=== PATIENT | male | born 1955 | race African-American/Black ===

== ENCOUNTER 2019-01-21 09:00 | Emergency (ER) | payer MEDICARE, MEDICAID ==
[~2019-01-21] VITALS: Ht 172.7 cm; Wt 70.0 kg
[~2019-01-21 09:00] MED LIST: ASA PO; CALC-440 PO; EPIVIR PO; HYDROCORTISONE PO; KALETRA PO; LEVE250T2 PO; LEVE500T19 PO; MONT10TA24 PO; SERT-112 PO; [UNRECOGNIZED DRUG - OTHER] PO
[2019-01-21 12:03] VITALS: BP 117/66
== END 2019-01-21 12:04 | disposition home or self-care (01) ==
LOC: ER 09:00
DX: H60.91 Unspecified otitis externa, right ear (principal); J02.9 Acute pharyngitis, unspecified
CPT/HCPCS: 87070; 87430; 99283

== ENCOUNTER 2021-01-25 21:10 | Inpatient (IN) | payer MEDICARE, MEDICAID ==
[~2021-01-25] VITALS: Ht 175.3 cm; Wt 62.1 kg
[~2021-01-25 21:10] MED LIST changes: -HYDROCORTISONE PO; -LEVE250T2 PO; +LEVO500T89 MT; -MONT10TA24 PO; +MONT10TA32 PO
[2021-01-25] MEDS ORDERED: ACETAMINOPHEN 325MG TABLET PO STA (22:14)
[2021-01-25] MEDS ORDERED: SODIUM CHLORIDE 0.9% 1,000 ML IV ONE (22:15)
[2021-01-25 23:11] LABS: BASOPHILS % 0.6 % (0.0-2.0); EOSINOPHILS % 0.1 % (0.0-5.0); HEMATOCRIT. 28.4 % (42.0-52.0); HEMOGLOBIN. 9.5 g/dL (14.0-18.0); LYMPHOCYTES % 23.7 % (20.0-50.0); MEAN CORPUSCULAR HEMOGLOBIN 33.4 pg (28.0-32.0); MEAN CORPUSCULAR VOLUME 99.5 fL (80.0-94.0); MEAN PLATELET VOLUME 8.5 fl (7.4-10.4); MONOCYTES % 6.1 % (2.0-8.0); NEUTROPHILS % 69.5 % (40.0-76.0); PLATELET 149 x1000/uL (130-400); RED BLOOD CELL COUNT 2.85 mill/uL (4.7-6.1); RED CELL DISTRIBUTION WIDTH 14.3 % (11.6-14.6)
[2021-01-25 23:17] LABS: CHLORIDE 112 mEq/L (98-107)
[2021-01-25] MEDS ORDERED: ASPIRIN 325MG EC TABLET PO ONE (23:45)
[2021-01-26] MEDS ORDERED: ACETAMINOPHEN 325MG TABLET PO PRN (08:30)
[2021-01-26] MEDS ORDERED: ONDANSETRON HCL 4MG/2ML INJ IV PRN (08:30)
[2021-01-26 09:00] VITALS: BP_SYST 106; BP_SYST 110; BP_SYST 120; BP_DIAS 45; BP_DIAS 46; BP_DIAS 47
[2021-01-26] MEDS ORDERED: ABACAVIR SULFATE 300MG TABLET PO SCH (09:00)
[2021-01-26] MEDS: ASPIRIN 81MG EC TABLET PO SCH (11:11)
[2021-01-26] MEDS: LEVETIRACETAM 500MG TABLET PO SCH ×2 (11:11→16:04)
[2021-01-26] MEDS: CALCIUM CARBONATE/VITAMIN D3 500MG TABLET PO SCH ×2 (11:11→21:13)
[2021-01-26 12:00] VITALS: BP_SYST 102; BP_SYST 109; BP_SYST 111; BP_DIAS 41; BP_DIAS 46; BP_DIAS 47
[2021-01-26] MEDS ORDERED: BICT1TAB PO (14:44)
[2021-01-26 16:00] VITALS: BP_SYST 109; BP_SYST 112; BP_SYST 119; BP_DIAS 51; BP_DIAS 54; BP_DIAS 56
[2021-01-26 19:21] LABS: CLARITY URINE CLEAR (CLEAR); COLOR URINE YELLOW (YELLOW); KETONES URINE NEGATIVE (NEGATIVE); LEUKOCYTE ESTERASE URINE 1+ (NEGATIVE); NITRITE URINE NEGATIVE (NEGATIVE); OCCULT BLOOD URINE NEGATIVE (NEGATIVE); PROTEIN URINE NEGATIVE (NEGATIVE)
[2021-01-26 20:00] VITALS: BP_SYST 109; BP_SYST 112; BP_SYST 121; BP_DIAS 55; BP_DIAS 57; BP_DIAS 62
[2021-01-26] MEDS ORDERED: SERTRALINE HCL 100MG TABLET PO SCH (21:00)
[2021-01-26] MEDS ORDERED: MONTELUKAST SODIUM 10MG TABLET PO SCH (21:00)
[2021-01-26] MEDS ORDERED: CEFTRIAXONE 1 G PREMIX 50 ML IV SCH (21:45)
[2021-01-26] MEDS ORDERED: CEFTRIAXONE 1,000 MG in DEXTROSE 5% WATER 50 ML IV SCH (22:45)
[2021-01-26] MEDS: BIKTARVY 50-200-25MG PO SCH (23:30)
[2021-01-27 00:07] VITALS: BP 110/61
[2021-01-27 04:00] VITALS: BP 110/54
[2021-01-27 08:00] VITALS: BP 96/59
[2021-01-27] MEDS: CALCIUM CARBONATE/VITAMIN D3 500MG TABLET PO SCH (09:48)
[2021-01-27] MEDS: BIKTARVY 50-200-25MG PO SCH (09:48)
[2021-01-27] MEDS: LEVETIRACETAM 500MG TABLET PO SCH (09:48)
[2021-01-27] MEDS: ASPIRIN 81MG EC TABLET PO SCH (09:48)
[2021-01-27 12:00] VITALS: BP 106/63
[2021-01-27 16:00] VITALS: BP 109/61
[2021-01-27] MEDS ORDERED: LEVO500T89 MT (16:51)
[2021-01-27 17:44] VITALS: BP 108/66
[2021-01-28 09:11] LABS: % CD 3 POS. LYMPHOCYTES 59.4 % (57.5-86.2); % CD 4 POS. LYMPHOCYTES 15.1 % (30.8-58.5); % CD 8 POS. LYMPH 42.9 % (12.0-35.5); ABSOLUTE CD 3 1485 /uL (622-2402); ABSOLUTE CD 4 HELPER 378 /uL (359-1519); ABSOLUTE CD 8 SUPPRESSOR 1073 /uL (109-897); ABSOLUTE EOSINOPHILS 0.1 x10E3/uL (0.0-0.4); ABSOLUTE LYMPHOCYTES 2.5 x10E3/uL (0.7-3.1); ABSOLUTE MONOCYTES 0.6 x10E3/uL (0.1-0.9); ABSOLUTE NEUTROPHILS 4.3 x10E3/uL (1.4-7.0); BASOPHILS 0 % (Not Estab.); CD4/CD8 RATIO 0.35 (0.92-3.72); HEMATOCRIT 30.5 % (37.5-51.0); HEMOGLOBIN 9.9 g/dL (13.0-17.7); IMMATURE GRANULOCYTES 0 % (Not Estab.); LYMPHOCYTES 33 % (Not Estab.); MEAN CORPUSCULAR HEMOGLOBIN 32.5 pg (26.6-33.0); MEAN CORPUSCULAR HGB CONC. 32.5 g/dL (31.5-35.7); MEAN CORPUSCULAR VOLUME 100 fL (79-97); MONOCYTES 8 % (Not Estab.); NEUTROPHILS 57 % (Not Estab.); PLATELETS 158 x10E3/uL (150-450); RBC 3.05 x10E6/uL (4.14-5.80); RED CELL DISTRIBUTION WIDTH 12.8 % (11.6-15.4); WBC 7.6 x10E3/uL (3.4-10.8)
== END 2021-01-27 18:45 | disposition home or self-care (01) | DRG 74 ==
LOC: ER 21:10 → MICUSO 01-26 04:01 → 8WST 01-26 08:11
PROVIDERS: ADMIT Internal Medicine; ATTEND Internal Medicine
DX: G90.8 Other disorders of autonomic nervous system (principal); N39.0 Urinary tract infection, site not specified; D64.9 Anemia, unspecified; E87.8 Other disorders of electrolyte and fluid balance, not elsewhere classified; E86.0 Dehydration; S01.112A Laceration without foreign body of left eyelid and periocular area, initial encounter; W18.39XA Other fall on same level, initial encounter; Y93.89 Activity, other specified; Y92.89 Other specified places as the place of occurrence of the external cause; Y99.8 Other external cause status; Z79.2 Long term (current) use of antibiotics; Z79.899 Other long term (current) drug therapy
CPT/HCPCS: 36415; 71045; 80053; 81003; 83880; 84443; 84484; 85025; 86359; 86360; 87077; 87186; 93005; 93306; 93880; 99285; J0696; J7030; J7060

== ENCOUNTER 2022-06-16 11:42 | Inpatient (IN) | payer MEDICARE, MEDICAID ==
[~2022-06-16] VITALS: Ht 167.6 cm; Wt 67.1 kg
[~2022-06-16 11:42] MED LIST changes: -ASA PO; +BICT1TAB PO; -EPIVIR PO; -KALETRA PO; -LEVO500T89 MT; +MONT-39 PO; -MONT10TA32 PO; -[UNRECOGNIZED DRUG - OTHER] PO
[2022-06-16] MEDS ORDERED: CEFTRIAXONE 1GM PREMIX 50 ML IV ONE (12:30)
[2022-06-16] MEDS ORDERED: SODIUM CHLORIDE 0.9% 1000ML BAG (SEPSIS BOLUS) IV ONE (12:30)
[2022-06-16 12:47] LABS: BASOPHILS % 0.7 % (0.0-2.0); EOSINOPHILS % 2.1 % (0.0-5.0); HEMATOCRIT. 34.3 % (42.0-52.0); HEMOGLOBIN. 11.5 g/dL (14.0-18.0); LYMPHOCYTES % 45.6 % (20.0-50.0); MEAN CORPUSCULAR HEMOGLOBIN 29.1 pg (28.0-32.0); MEAN PLATELET VOLUME 8.6 fl (7.4-10.4); MONOCYTES % 5.9 % (2.0-8.0); NEUTROPHILS % 45.7 % (40.0-76.0); PLATELET 169 x1000/uL (130-400); RED BLOOD CELL COUNT 3.94 mill/uL (4.7-6.1); RED CELL DISTRIBUTION WIDTH 19.5 % (11.6-14.6)
[2022-06-16 12:57] LABS: CHLORIDE 110 mEq/L (98-107)
[2022-06-16 13:03] LABS: PROTHROMBIN TIME 10.9 sec (9.6-11.0)
[2022-06-16] MEDS ORDERED: MAGNESIUM/ALUMINUM HYDROXIDE/SIMETHICONE 30ML UDC PO PRN (14:30)
[2022-06-16] MEDS ORDERED: IPRATROPIUM/ALBUTEROL 0.5-3(2.5)MG/3ML NEB NEB PRN (14:30)
[2022-06-16] MEDS ORDERED: ONDANSETRON HCL 4MG/2ML INJ IV PRN (14:30)
[2022-06-16] MEDS ORDERED: ACETAMINOPHEN 325MG TABLET PO PRN ×2 (14:30)
[2022-06-16] MEDS ORDERED: CLONIDINE 0.1MG TABLET PO PRN (14:30)
[2022-06-16] MEDS ORDERED: GUAIFENESIN 200MG/10ML SUGAR FREE UDC PO PRN (14:30)
[2022-06-16] MEDS: SODIUM CHLORIDE 0.9% 1,000 ML IV SCH (15:59)
[2022-06-16] MEDS: ENOXAPARIN 40MG/0.4ML SYR SUBCUT SCH (15:59)
[2022-06-16 17:01] VITALS: BP 121/76
[2022-06-16 17:02] VITALS: BP 121/76
[2022-06-16 20:00] VITALS: BP 119/72
[2022-06-17] VITALS: BP 127/84
[2022-06-17] MEDS: SODIUM CHLORIDE 0.9% 1,000 ML IV SCH ×3 (00:30→20:30)
[2022-06-17 04:00] VITALS: BP 136/91
[2022-06-17 06:41] LABS: BASOPHILS % 0.8 % (0.0-2.0); EOSINOPHILS % 2.9 % (0.0-5.0); HEMATOCRIT. 30.2 % (42.0-52.0); HEMOGLOBIN. 10.2 g/dL (14.0-18.0); LYMPHOCYTES % 61.2 % (20.0-50.0); MEAN CORPUSCULAR HEMOGLOBIN 29.7 pg (28.0-32.0); MEAN CORPUSCULAR VOLUME 87.3 fL (80.0-94.0); MONOCYTES % 5.6 % (2.0-8.0); NEUTROPHILS % 29.5 % (40.0-76.0); PLATELET 133 x1000/uL (130-400); RED BLOOD CELL COUNT 3.45 mill/uL (4.7-6.1); RED CELL DISTRIBUTION WIDTH 18.9 % (11.6-14.6)
[2022-06-17 06:46] LABS: CHLORIDE 115 mEq/L (98-107)
[2022-06-17 07:04] LABS: PHOSPHORUS 2.5 mg/dL (2.5-4.9); T4 FREE 0.72 ng/dL (0.76-1.46); TOTAL IRON BINDING CAPACITY 246 ug/dL (250-450)
[2022-06-17 08:00] VITALS: BP 114/49
[2022-06-17 12:00] VITALS: BP 140/82
[2022-06-17] MEDS: ENOXAPARIN 40MG/0.4ML SYR SUBCUT SCH (14:35)
[2022-06-17 16:00] VITALS: BP 139/91
[2022-06-17 20:00] VITALS: BP 137/85
[2022-06-18] VITALS: BP 140/79
[2022-06-18 04:00] VITALS: BP 130/87
[2022-06-18 05:36] LABS: BASOPHILS % 0.5 % (0.0-2.0); EOSINOPHILS % 4.6 % (0.0-5.0); HEMATOCRIT. 29.6 % (42.0-52.0); HEMOGLOBIN. 10.2 g/dL (14.0-18.0); LYMPHOCYTES % 61.6 % (20.0-50.0); MEAN CORPUSCULAR HEMOGLOBIN 29.5 pg (28.0-32.0); MEAN CORPUSCULAR VOLUME 85.6 fL (80.0-94.0); MONOCYTES % 5.6 % (2.0-8.0); NEUTROPHILS % 27.7 % (40.0-76.0); PLATELET 142 x1000/uL (130-400); RED BLOOD CELL COUNT 3.46 mill/uL (4.7-6.1); RED CELL DISTRIBUTION WIDTH 18.2 % (11.6-14.6)
[2022-06-18 05:44] LABS: CHLORIDE 110 mEq/L (98-107)
[2022-06-18] MEDS: SODIUM CHLORIDE 0.9% 1,000 ML IV SCH (06:30)
[2022-06-18 08:00] VITALS: BP 100/78
[2022-06-18 12:00] VITALS: BP 126/87
[2022-06-18 14:52] VITALS: BP 110/67
[2022-06-18] MEDS: ENOXAPARIN 40MG/0.4ML SYR SUBCUT SCH (15:15)
[2022-06-18 16:19] VITALS: BP 101/50
== END 2022-06-18 16:35 | disposition home or self-care (01) | DRG 156 ==
LOC: ER 11:42 → 7WST 13:54 → SUPCPDRO 14:17
PROVIDERS: ADMIT Internal Medicine; ATTEND Internal Medicine
DX: H92.01 Otalgia, right ear (principal); E86.0 Dehydration; I95.9 Hypotension, unspecified; B19.20 Unspecified viral hepatitis C without hepatic coma; I49.5 Sick sinus syndrome; Z21 Asymptomatic human immunodeficiency virus [HIV] infection status; D64.9 Anemia, unspecified; G40.909 Epilepsy, unspecified, not intractable, without status epilepticus; Z20.822 Contact with and (suspected) exposure to COVID-19; Z95.0 Presence of cardiac pacemaker
CPT/HCPCS: 36415; 71045; 80048; 80053; 82607; 82728; 82746; 82962; 83540; 83550; 83605; 83735; 84100; 84145; 84439; 84443; 84484; 85025; 87426; 93005; 93306; 99285; C9803; J0696; J1650; J2405; J7030

== ENCOUNTER 2022-11-28 15:57 | Emergency (ER) | payer MEDICARE, MEDICAID ==
[~2022-11-28] VITALS: Ht 172.7 cm; Wt 52.0 kg
[2022-11-28 16:00] VITALS: O2SAT 97
[2022-11-28 16:50] LABS: CLARITY URINE CLEAR (CLEAR); COLOR URINE DARK YELLOW (YELLOW); GLUCOSE URINE NEGATIVE (NEGATIVE); KETONES URINE NEGATIVE (NEGATIVE); LEUKOCYTE ESTERASE URINE TRACE (NEGATIVE); NITRITE URINE NEGATIVE (NEGATIVE); OCCULT BLOOD URINE NEGATIVE (NEGATIVE); PROTEIN URINE NEGATIVE (NEGATIVE); SPECIFIC GRAVITY URINE 1.013 (1.005-1.030)
[2022-11-28 16:53] LABS: RBC URINE 0-2 /hpf (0-2); WBC URINE 0-2 /hpf (0-2); YEAST URINE NONE SEEN
[2022-11-28 17:17] LABS: BACTERIA URINE 1+; SQUAMOUS EPITHELIAL CELL URINE FEW /lpf (RARE/1+)
[2022-11-28 17:18] LABS: HYALINE CASTS URINE 0-5 /lpf
[2022-11-28 17:22] LABS: BASOPHILS % 0.7 % (0.0-2.0); DIFFERENTIAL COMMENT 0; EOSINOPHILS % 3.9 % (0.0-5.0); HEMOGLOBIN. 9.6 g/dL (14.0-18.0); LYMPHOCYTES % 47.5 % (20.0-50.0); MEAN CORPUSCULAR HEMOGLOBIN 33.4 pg (28.0-32.0); MEAN PLATELET VOLUME 8.2 fl (7.4-10.4); MONOCYTES % 4.8 % (2.0-8.0); NEUTROPHILS % 43.1 % (40.0-76.0); PLATELET 147 x1000/uL (130-400); RED BLOOD CELL COUNT 2.87 mill/uL (4.7-6.1); RED CELL DISTRIBUTION WIDTH 12.9 % (11.6-14.6); WHITE BLOOD COUNT 6.1 x1000/uL (4.5-11.0)
[2022-11-28 17:36] LABS: CHLORIDE 109 mEq/L (98-107); INDEX HEMOLYSI 1 (1-3); INDEX ICTERIC 1 (1-4); INDEX LIPEMIC 1 (1-3); POTASSIUM 4.2 mEq/L (3.5-5.1); SODIUM 139 mEq/L (136-145)
[2022-11-28 17:47] LABS: ALANINE AMINOTRANSFERASE 17 IU/L (13-61); ALBUMIN 4.2 g/dL (3.4-5.0); ASPARTATE AMINOTRANSFERASE 17 IU/L (15-37); CALCIUM 8.1 mg/dL (8.5-10.1); CARBON DIOXIDE 25 mEq/L (21-32); CREATININE 1.1 mg/dL (0.6-1.3); GLUCOSE 123 mg/dL (70-105); PROTEIN TOTAL 7.9 g/dL (6.0-8.3); UREA NITROGEN BLOOD 15 mg/dL (7-21)
[2022-11-28 18:52] VITALS: BP 106/67; PULSE 60; RESP 20; TEMP 98
[2022-11-28] MEDS ORDERED: FLUT1DIS3 INH (18:56)
== END 2022-11-28 19:20 | disposition home or self-care (01) ==
LOC: ER 15:57
DX: D64.9 Anemia, unspecified (principal); I49.9 Cardiac arrhythmia, unspecified; I10 Essential (primary) hypertension; Z76.0 Encounter for issue of repeat prescription; Z86.59 Personal history of other mental and behavioral disorders
CPT/HCPCS: 36415; 71045; 80053; 81003; 85025; 86850; 86900; 93005; 99285